=== PATIENT | female | born 1955 | race Caucasian/White ===

== ENCOUNTER 2017-05-10 09:27 | Inpatient (IN) | payer BC, OTHER ==
[2017-05-10] MEDS ORDERED: MORPHINE SULFATE INJ 10 MG/ML VIAL IV ONE ×2 (09:42→11:20)
--- NOTE | 2017-05-10 09:47 | ED.PDOC ---
History of Present Illness - General Chief Complaint: Abdominal Pain Stated Complaint: abdominal pain Time Seen by Provider: 05/10/17 09:33 Source: patient Exam Limitations: no limitations - History of Present Illness Initial Comments: Patient presents with abdominal pain, N/V/D since last night. The pain is diffuse, cramping, radiates to the back, worse with movement, better with rest, not relieved by bowel movements or vomiting. No previous episodes. Patient says it started with diarrhea but did not notice if it was bloody or not. N/V started shortly after. She has had a hysterectomy and cholecystectomy but is unsure if she has had an appendectomy. No fever nor chills. No recent travel nor new eating establishments. Has htn but denies diabetes. Timing/Duration: other - 12 hours Severity: moderate Improving Factors: rest Worsening Factors: movement Associated Symptoms: nausea/vomiting Allergies/Adverse Reactions: Allergies Iron Adverse Reaction (Verified 05/10/17 09:38) Other Causes upset stomach Home Medications: Ambulatory Orders Alprazolam [Xanax] 1 mg PO BEDTIME 05/24/16 Enalapril Maleate 10 mg PO DAILY 05/24/16 Sertraline HCl 50 mg PO DAILY 05/24/16 Simvastatin [Zocor] 40 mg PO DAILY 05/24/16 Rivaroxaban [Xarelto] 10 mg PO DAILY 05/10/17 Review of Systems - Review of Systems Constitutional: States: no symptoms reported EENTM: States: no symptoms reported Respiratory: States: no symptoms reported Cardiology: States: no symptoms reported Gastrointestinal/Abdominal: States: see HPI Genitourinary: States: no symptoms reported Musculoskeletal: States: no symptoms reported Skin: States: no symptoms reported Neurological: States: no symptoms reported Endocrine: States: no symptoms reported Hematologic/Lymphatic: States: no symptoms reported Past Medical History (General) - Patient Medical History Hx Seizures: No Hx Stroke: No Hx Dementia: No Hx Asthma: No Hx of COPD: No Hx Cardiac Disorders: No Hx Congestive Heart Failure: No Hx Pacemaker: No Hx Hypertension: Yes Hx Thyroid Disease: No Hx Diabetes: No Hx Gastroesophageal Reflux: Yes Hx Renal Disease: No Hx Cancer: No Hx of HIV: No Hx Hepatitis C: No Hx MRSA: No Surgical History: cholecystectomy, Hysterectomy - Vaccination History Hx Tetanus, Diphtheria Vaccination: No Hx Influenza Vaccination: Yes Hx Pneumococcal Vaccination: Yes - Social History Hx Tobacco Use: Yes Hx Chewing Tobacco Use: No Hx Alcohol Use: Yes - Socially on weekends Hx Substance Use: No Hx Substance Use Treatment: No Hx Depression: Yes Hx Physical Abuse: No Hx Emotional Abuse: No Hx Suspected Abuse: No - Activities of Daily Living Hospice Agency (if applicable):: None - Female History Patient is a Female of Child Bearing Age (10 -59 yrs old): No Patient : No Family Medical History - Family History Mother Family History: Unknown Living Status: Physical Exam - Physical Exam General Appearance: Obvious distress Respiratory: chest non-tender, lungs clear Cardiovascular/Chest: normal peripheral pulses, regular rate, rhythm, no edema Gastrointestinal/Abdominal: other - TTP, NABS, moderate guarding diffusely Back Exam: no CVA tenderness Extremity: no pedal edema Skin Exam: normal color Progress - Progress Progress: 05/10/17 09:49 Morpine 4 mg IV x one. 05/10/17 11:12 CT abdomen/pelvis showed acute pancreatitis. Lipase was only 45. Walkerton Score was 1. Patient given zofran 4 mg IV x one and started on NS at 100 ml/hour Admitted for acute pancreatitis. During the ER admission, the patient disclosed that she had drank 10 beers the night before. Laboratory Tests 05/10/17 05/10/17 05/10/17 09:53 09:53 09:53 WBC 13.2 H RBC 4.39 Hgb 13.2 Hct 40.7 MCV 92.7 MCH 30.0 MCHC 32.5 L RDW 15.7 H Plt Count 203 MPV 7.8 Absolute Neuts (auto) 12.10 H Absolute Lymphs (auto) 0.60 L Absolute Monos (auto) 0.50 Absolute Eos (auto) 0.00 Absolute Basos (auto) 0.10 Neutrophils % 91.2 H Lymphocytes % 4.5 L Monocytes % 3.8 Eosinophils % 0.0 L Basophils % 0.5 PT 13.2 H INR 1.170 PTT (SP) 37.9 H Sodium 141 Potassium 4.3 Chloride 106 Carbon Dioxide 25 Anion Gap 14.3 BUN 9 Creatinine 0.72 BUN/Creatinine Ratio 12.5 Random Glucose 171 H Serum Osmolality 284.0 Calcium 9.3 Total Bilirubin 0.5 AST 22 ALT 19 Alkaline Phosphatase 68 Creatine Kinase 35 CK-MB (CK-2) 2.2 CK-MB (CK-2) % Not Reportable Troponin I < 0.02 B-Natriuretic Peptide 5.7 Serum Total Protein 6.9 Albumin 4.0 Globulin 2.9 Albumin/Globulin Ratio 1.4 Lipase 45 Departure - Departure Clinical Impression: Pancreatitis Disposition: Admit Patient Condition: Good Departure Forms: ED Discharge - Pt. Copy, Patient Portal Self Enrollment Instructions: DI for Abdominal Pain-Adult Diet: other - NPO Activity: other - as per hospitalist Home Medications: Ambulatory Orders Alprazolam [Xanax] 1 mg PO BEDTIME 05/24/16 Enalapril Maleate 10 mg PO DAILY 05/24/16 Sertraline HCl 50 mg PO DAILY 05/24/16 Simvastatin [Zocor] 40 mg PO DAILY 05/24/16 Rivaroxaban [Xarelto] 10 mg PO DAILY 05/10/17
[2017-05-10] MEDS ORDERED: ONDANSETRON INJ 4 MG/2 ML VIAL IV ONE (10:20)
--- NOTE | 2017-05-10 10:25 | CT ---
EXAM DESCRIPTION: Abdomen/Pelvis w/wo Contrast CLINICAL HISTORY: Abdominal tenderness, bloating, and pain COMPARISON: None Available TECHNIQUE: CT of the abdomen and Pelvis was performed with and without IV contrast. This exam was performed according to our departmental dose-optimization program, which includes automated exposure control, adjustment of the mA and/or kV according to patient size and/or use of iterative reconstruction technique. FINDINGS: Pre-IV contrast images show evidence of prior cholecystectomy. Is a tiny nonobstructing calculus in the right renal hilum which may be of vascular origin. Mural calcifications are noted in the abdominal aorta without aneurysm. Postcontrast images show peripancreatic inflammation and fluid without contained fluid collection. There is no pancreatic mass or pancreatic duct dilation. No calcified gallstone is seen in the common bile duct, and there is no intra or extrahepatic biliary duct dilation. There is a 2 or 3 cm peripherally enhancing lesion in the posterior segment of the right hepatic lobe which likely represents a hemangioma. The portal and splenic veins are unremarkable. No apparent GI tract abnormality. The uterus is not identified, please correlate with surgical history. The left ovary is only tentatively identified. The right ovary is not seen and may also be surgically absent. No pleural effusion. IMPRESSION: Acute pancreatitis without contained peripancreatic fluid collection, abscess or other acute complication. Status post cholecystectomy without calcified gallstone in the common bile duct. Small hepatic hemangioma. Electronically signed by: Sebastien Mays MD 05/10/2017 10:23 AM CDT Workstation: [id number]
[2017-05-10] MEDS ORDERED: SODIUM CHLORIDE 0.9% 1000ML 1,000 ML IVS PRN (11:09)
--- NOTE | 2017-05-10 11:46 | HP ---
SUPERVISING PHYSICIAN: Emile Kahn M.D. CHIEF COMPLAINT: Abdominal pain. HISTORY OF PRESENT ILLNESS: Ms. Peterson is a 62 year-old female patient that presented to the Emergency Department this morning with complaints of acute onset of abdominal pain with having nausea, vomiting and diarrhea since yesterday. She notes that the pain has been diffuse and cramping with severe bloating and gas with some vomiting, and pain radiating from the epigastrium to her mid back. She notes that she has recently been out of the country within the last 2 weeks and visited [facility], [place] and [place], but denied any symptoms on [facility] 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 She notes that this past week she had consumed some alcohol but last night she had eaten at a restaurant and had some pizza, and consumed greater than 10 beers when she started having severe abdominal pains. She noted that she had been having diarrhea prior to last night's event , but denied any ill contacts at home. Initial laboratory studies in the Emergency Department showed that she had a leukocytosis of 13.2 with a left shift. Her hemoglobin showed 13.2 and 40.7 with a platelet count 203,000. Chemistries showed normal electrolytes with potassium 4.3. Renal function was intact with creatinine 0.72. Lipase was normal at 45. Cardiac enzymes showed troponin less than 0.02. All other liver functions showed to be within normal limits, including an LDH that was normal at 122. Given her severe abdominal pains on exam, a CT of the abdomen was completed without IV contrast and per radiology interpretation there was note of acute pancreatitis without contained peripancreatic fluid collections, abscess or other acute complications. She was given morphine for pain control, started on IV fluids in the Emergency Department and then request for the patient to be admitted to the Medical/ Surgical floor by Dr. Yates. The patient was seen and found to be in stable condition, and now is going to be admitted to the Medical/Surgical floor for treatment of acute pancreatitis and further evaluation, and ongoing therapy of the nausea, vomiting and diarrhea. PAST MEDICAL HISTORY: 1. Hypertension. 2. Anxiety and depression. 3. Pulmonary embolism after a bladder surgery in 2014, currently on Xarelto. 4. Duodenal ulcer with complications needing transfusion in May 2016 with upper GI being performed by Dr. Martinez. 5. Gastroesophageal reflux disease and is on Prilosec, however she has not been taking her medication for at least the last 7 days. PAST SURGICAL HISTORY: 1. Total hysterectomy. 2. Tonsillectomy. 3. Two bladder suspensions. 4. Cholecystectomy. 5. Breast biopsy on the left side. 6. Right wrist and ankle surgery. 7. Arthroscopic surgery of the right knee. 8. Surgical procedure for vulvoperineal varicosity. HOME MEDICATIONS: 1. Xanax 1 mg at bedtime. 2. Zocor 40 mg at bedtime. 3. Sertraline 50 mg. 4. Xarelto 10 mg daily. 5. Enalapril maleate 10 mg daily. 6. Prilosec 40 mg daily. FAMILY HISTORY: Significant for colon cancers. SOCIAL HISTORY: The patient is . 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 She does have a remote history of smoking but quit in 2014, but does periodically use a vaporizer. She notes that she drinks occasionally which she says is once a month and when she does she drinks beer. She denies any illicit drug use. REVIEW OF SYSTEMS: CONSTITUTIONAL: The patient denies any fever or chills. HEENT: Denies any headaches, visual disturbances, nasal congestion or sore throat. RESPIRATORY: Denies any shortness of breath or cough. CARDIOVASCULAR: Denies any chest pains, palpitations or syncopal episodes. GASTROINTESTINAL: As noted in the History of Present Illness, diffuse abdominal pain with nausea, vomiting and diarrhea. GENITOURINARY: Denies any dysuria, hematuria or other urinary symptoms. MUSCULOSKELETAL: Notes that she is having pain that radiates from her epigastric region into her back, it started last night. NEUROLOGIC: Denies any syncopal episodes, memory changes or any neurological deficits. PHYSICAL EXAMINATION: VITAL SIGNS: Temperature initially in the Emergency Room was 98.7, pulse 112, blood pressure 155/92, respirations 20 to 22, satting 89% on room air at rest, improving to 94% on nasal cannula at 2 liters. Admission weight is 85.4 kg. GENERAL: On admission to the Medical/Surgical floor, the patient is comfortable , appears to be in no acute distress. She is alert and oriented. HEENT: Tympanic membranes are clear bilaterally. Oropharynx is pink with mucosal membranes being dry. No lesions are noted. NECK: Supple, non-tender. Full range of motion with no jugular venous distention. CHEST: Lungs are clear to auscultation, just diminished towards the bases but no obvious rhonchi, wheezing or rales. CARDIOVASCULAR: Regular rate and rhythm without appreciable murmurs, gallops, or rubs. ABDOMEN: Diffuse tenderness to palpation with some guarding but normal bowel sounds. EXTREMITIES: No clubbing, cyanosis or edema. NEUROLOGIC: She is alert and oriented times three. Facial features were symmetrical. Extraocular movements are within normal limits. There is no nystagmus noted. There are no lateralizing or focalizing neuromotor deficits. LABORATORY: CBC shows leukocytosis of 13.3 with hemoglobin 13.2, hematocrit 40.7, platelet count 203,000. Differential does show a left shift. Coagulation studies show PT 13.2, PTT of 37.9. Chemistries show normal electrolytes initially with sodium 141, potassium 4.3, calcium 9.3, magnesium 1.6, BUN 9, creatinine 0.72. Liver functions showed to be within normal limits. LDH was 122. Troponin initially was less than 0.02. BNP was 5.7. Lipase was 45. Triglycerides and C reactive protein pending on admission. Urinalysis showed 3 to 5 RBCs, small amount of blood, otherwise within normal limits. Urine drug screen and alcohol level were pending at time of admission. RADIOLOGY: Initially in the Emergency Department and abdomen and pelvis CT completed without contrast showed acute pancreatitis without contained peripancreatic fluid collection, abscess or other acute complications. Chest x- ray was pending at time of admission. ASSESSMENT: 1. Acute pancreatitis as evidenced by CT scan with the patient showing systemic inflammatory response as being tachycardic with a leukocytosis and left shift, significant on admission to the Emergency Department felt to be secondary to acute alcohol intoxication versus dehydration from acute nausea, vomiting and diarrhea. 2. Acute abdominal pain with nausea, vomiting and diarrhea with a history of being recently out of the country travelling to [place] and [facility] with stool studies pending. Likely exacerbating acute pancreatitis. 3. Hypomagnesemia. 4. History of gastroesophageal reflux disease with some epigastric discomfort possibly secondary to acute pancreatitis with the patient having a past history of a duodenal ulcer with the patient being noncompliant with her PPI treatment in the recent weeks. 5. Hypertension. 6. Anxiety and depression on antidepressants. 7. History of past pulmonary embolism after a bladder suspension surgery in 2015 with the patient being on Xarelto. 8. Moderate obesity as noted by body mass index of 32.3. 9. Leukocytosis with a left shift in the presence of acute pancreatitis. PLAN: The patient will be admitted to the Medical/Surgical floor for continuation of treatment and further evaluation of her abdominal pains. She was given IV fluids in the Emergency Department. This will be continued with Lactated Ringers at 250 mL per hour for 2 liters with a repeat BMP and lipase and amylase at 2000 hours tonight. Once that BMP is available for review, fluid management will be adjusted as according to her electrolytes and renal function. She will be NPO for at least the next 24 to 48 hours depending on the clinical resolution of her symptoms. She will be provided pain management with morphine and antiemetics to include Zofran and Phenergan as needed. Given that she has been having a significant amount of diarrhea according to her history and has a recent history of travelling outside the [facility] to [facility], [place] and [place], will do stool studies to include ova and parasites , Giardia, Cryptosporidia, stool cultures and Clostridium Difficile along with fecal leukocytes and occult bloods. Will start her on coverage with antibiotic therapy pending stool cultures and further studies until available to be including Flagyl 500 mg every 8 hours with Levaquin 500 mg daily. Will anticipate length of stay to be at least 2 to 3 days pending clinical improvement and repeat laboratory studies. Until then, will continue to monitor the patient closely and treat appropriately. Once clinically stable and able to be discharged, the patient will need close clinical followup with her primary care provider, Gemini Fuentes with Dr. Serrato in [place]. #[id number] MXOS
[2017-05-10] MEDS ORDERED: LACTATED RINGERS 1,000 ML IVS PRN (12:04)
[2017-05-10] MEDS ORDERED: SODIUM CHLORIDE 0.9% (FLUSH) 10 ML SYG IV PRN (12:08)
[2017-05-10] MEDS ORDERED: ONDANSETRON INJ 4 MG/2 ML VIAL IV PRN (12:08)
[2017-05-10] MEDS ORDERED: PANTOPRAZOLE SODIUM IV 40 MG VIAL IV ONE (12:20)
[2017-05-10] MEDS ORDERED: IV SET AND CAP CHANGE INJ INJ SCH (12:30)
[2017-05-10] MEDS ORDERED: MAGNESIUM SULFATE PREMIX 2GM 2 GM in PREMIX BAG 1 BAG IVPB ONE (12:56)
[2017-05-10] MEDS ORDERED: MAGNESIUM SULFATE PREMIX 2GM 50 ML IVPB ONE (13:11)
[2017-05-10] MEDS: MORPHINE SULFATE INJ 10 MG/ML VIAL IV PRN ×3 (13:29→20:36)
--- NOTE | 2017-05-10 13:36 | RAD ---
EXAM DESCRIPTION: Chest,1 View CLINICAL HISTORY: acute pancreatitis COMPARISON: None available FINDINGS: The cardiomediastinal silhouette is unremarkable. There is some alveolar opacity in the right lung base which probably represents atelectasis, less likely pneumonia. No additional airspace consolidation or pleural effusion. There is no pneumothorax or acute fracture. IMPRESSION: Subsegmental atelectasis versus developing pneumonia in the right lung base, otherwise unremarkable exam. Electronically signed by: Sebastien Mays MD 05/10/2017 1:34 PM CDT Workstation: [id number]
[2017-05-10] MEDS ORDERED: metroNIDAZOLE IV PREMIX 500MG 100 ML IVPB ONE ×2 (14:37→20:06)
[2017-05-10] MEDS ORDERED: levoFLOXacin 500MG IV 100 ML IVPB ONE (14:38)
[2017-05-10] MEDS: metroNIDAZOLE IV PREMIX 500MG 500 MG in PREMIX BAG 1 BAG IVPB SCH ×2 (14:54→21:34)
[2017-05-10] MEDS: ENALAPRIL MALEATE 5 MG TAB PO SCH (15:00)
[2017-05-10] MEDS: SERTRALINE HCL 50 MG TAB PO SCH (15:00)
[2017-05-10] MEDS: RIVAROXABAN 10 MG TAB PO SCH (15:00)
[2017-05-10] MEDS: levoFLOXacin 500MG IV 500 MG in PREMIX BAG 1 BAG IVPB SCH (15:30)
[2017-05-10] MEDS: ALPRAZolam 0.5 MG TAB PO SCH (20:34)
[2017-05-10] MEDS: SODIUM CHLORIDE 0.45% 1000ML 1,000 ML IVS PRN (21:31)
[2017-05-11] MEDS: MORPHINE SULFATE INJ 10 MG/ML VIAL IV PRN ×3 (03:04→16:30)
[2017-05-11] MEDS ORDERED: metroNIDAZOLE IV PREMIX 500MG 100 ML IVPB ONE ×3 (05:22→21:39)
[2017-05-11] MEDS: metroNIDAZOLE IV PREMIX 500MG 500 MG in PREMIX BAG 1 BAG IVPB SCH ×3 (05:34→21:30)
[2017-05-11] MEDS: SODIUM CHLORIDE 0.45% 1000ML 1,000 ML IVS PRN (06:11)
[2017-05-11] MEDS ORDERED: levoFLOXacin 500MG IV 100 ML IVPB ONE (07:20)
[2017-05-11] MEDS: IPRATROPIUM/ALBUTEROL 3 ML VIAL NEB SCH ×4 (08:00→19:50)
--- NOTE | 2017-05-11 08:01 | RAD ---
PROCEDURE: Abdomen Flat Upright Clinical History: acute pancreatitis Indication: Same as above Comparison: CT of the abdomen and pelvis and chest x-ray done on 05/10/2017 Technique: Two views of the abdomen and pelvis were done. Findings: There is no gross evidence of free air in the abdomen or the pelvis . The small and large bowel gas pattern does not show any evidence of obstruction, ileus or bowel wall thickening. There is no visualization of radiopaque calculi in the outline of the urinary tract. The visualized lung bases show probable mild left-sided pleural effusion and mild bibasilar infiltrate/atelectasis There is no significant constipation. Impression: Nonobstructive and nonspecific bowel gas pattern The visualized lung bases show probable mild left-sided pleural effusion and mild bibasilar infiltrate/atelectasis Electronically signed by: Marlo Will MD 05/11/2017 8:00 AM CDT Workstation: [id number]
[2017-05-11] MEDS ORDERED: IPRATROPIUM/ALBUTEROL 3 ML VIAL NEB ONE (08:10)
[2017-05-11] MEDS ORDERED: HYDROmorphone HCL INJ 2 MG/ML VIAL IV ONE ×3 (08:57→12:44)
[2017-05-11] MEDS: RIVAROXABAN 10 MG TAB PO SCH (09:05)
[2017-05-11] MEDS: ENALAPRIL MALEATE 5 MG TAB PO SCH (09:05)
[2017-05-11] MEDS: SERTRALINE HCL 50 MG TAB PO SCH (09:05)
[2017-05-11] MEDS ORDERED: KCL 20 MEQ/NS 1,000 ML IVS PRN (12:31)
--- NOTE | 2017-05-11 13:03 | PN ---
DATE: 05/11/17 SUPERVISING PHYSICIAN: Emile Kahn M.D. SUBJECTIVE: The patient remains afebrile. She notes that her abdominal pain is not quite as bad as it was yesterday, although she does remain quite tender. She has not had any diarrhea since admission. She has had some additional episodes of nausea without any emesis. OBJECTIVE: VITAL SIGNS: Pulse 117, temperature 97.8, blood pressure 119/78, respirations 20, satting 88% on nasal cannula at rest. I's and O's show a positive balance of 1810 with 550 out, 2360 in. Weight is 85.4 kg. CHEST: Lungs are clear but somewhat diminished towards the bases. HEART: Tachycardic rhythm on bedside telemetry. No gallops or rubs are noted. ABDOMEN: Remains diffusely tender but there is no rebound tenderness noted this morning. She still seems to be more tender over the epigastrium. Bowel sounds are present. ABDOMEN: Remains soft. EXTREMITIES: No clubbing, cyanosis or edema. NEUROLOGIC : She is alert and oriented times three. LABORATORY: White count did show significant leukocytosis today of 23.1, platelet count is at 223,000. Differential shows a continued left shift although improving. Chemistries last night at 8:00 showed normal electrolytes with BUN of 9, creatinine 7.3, glucoses have been in the 150s, calcium last night was 8.4. This morning repeat chemistries showed normal electrolytes with potassium 4.6, BUN 8, creatinine 0.57, glucose 150, calcium 8.3, magnesium 2.2. Liver functions showed to be within normal limits. She did have a troponin last night at 8:00 as well that showed less than 0.02. Pancreatic enzymes last night at 8:00 had elevated to a lipase of 335, amylase 363. This morning, lipase is down to 261 as well as amylase is down to 310. RADIOLOGY: Abdominal series this morning per radiology interpretation shows a nonobstructive and nonspecific bowel gas pattern. ASSESSMENT: 1. Acute pancreatitis noted on CT scan on admission with the patient continuing to show systemic inflammatory response. Has remained tachycardic with an increase in leukocytosis and left shift with now elevated pancreatic enzymes felt to be secondary to acute alcohol intoxication versus exacerbation by dehydration by nausea, vomiting and diarrhea. 2. Acute abdominal pain associated with nausea, vomiting and diarrhea with a history of being recently out of the country travelling to [place] and [facility], [place] with stool studies continuing to be pending felt to be exacerbating the underlying acute pancreatitis. 3. Hypomagnesemia, improved after IV therapy. 4. History of gastroesophageal reflux disease with some continued epigastric discomfort likely secondary to acute pancreatitis with the patient having a history of a duodenal ulcer with the patient being noncompliant with PPI treatment in the recent weeks. 5. Hypertension. 6. Anxiety and depression on antidepressants. 7. History of past pulmonary embolism after bladder suspension surgery in 2014 with the patient being on Xarelto. 8. Moderate obesity as noted on body mass index of 32.3. 9. Continued leukocytosis with a left shift in the presence of acute pancreatitis with the patient having been placed on parenteral antibiotics to include Flagyl and Levaquin. PLAN: The patient will be continued with aggressive treatment and fluids this morning. Her output has not been well documented. I have requested a Puckett catheter be placed at least for the next 12 hours to closely monitor her output to help manage fluid status and IV therapy. She will be on half normal saline at 250 an hour today. Will closely monitor her I's and O's. Will manage fluids according to repeat BMP tonight at 1800. She has not had good pain control with morphine every 2 hours, therefore I will attempt to get her pain better controlled with some Dilaudid and then continue with morphine after that point. She will remain NPO with again repeat laboratory studies tonight and again in the morning as well as repeat abdominal series. She remains on close monitoring with telemetry. Anticipate at least an additional 48 hours of hospitalization given the patient's clinical condition currently. Until discharge, will continue to follow the patient closely and treat appropriately. #[id number] MTDD
[2017-05-11] MEDS: KCL 20 MEQ/NS 1,000 ML IVS PRN ×2 (14:12→22:57)
[2017-05-11] MEDS: levoFLOXacin 500MG IV 500 MG in PREMIX BAG 1 BAG IVPB SCH (15:00)
[2017-05-11] MEDS ORDERED: HYDROmorphone HCL INJ 2 MG/ML VIAL ONE (16:34)
[2017-05-11] MEDS: ALPRAZolam 0.5 MG TAB PO SCH (21:15)
[2017-05-12] MEDS: MORPHINE SULFATE INJ 10 MG/ML VIAL IV PRN ×2 (03:26→07:41)
[2017-05-12] MEDS ORDERED: metroNIDAZOLE IV PREMIX 500MG 100 ML IVPB ONE ×3 (07:25→20:55)
--- NOTE | 2017-05-12 07:26 | RAD ---
Abdomen 2 views INDICATION: Acute pancreatitis IMPRESSION: Mild bilateral pleural fluid. Cholecystectomy clips right upper quadrant. Multiple air-fluid levels are noted especially in the right abdomen. This is nonspecific and may be an enteritis/colitis or localized ileus. No evidence of high-grade mechanical obstruction. There is a rotary lumbar scoliosis. No evidence of free air. Electronically signed by: Shelton Winston MD 05/12/2017 7:25 AM CDT
[2017-05-12] MEDS: metroNIDAZOLE IV PREMIX 500MG 500 MG in PREMIX BAG 1 BAG IVPB SCH ×3 (07:29→22:00)
--- NOTE | 2017-05-12 07:29 | RAD ---
Chest 2 views INDICATION: Acute pancreatitis pneumonia IMPRESSION: Small bilateral pleural effusions. Heart size is within normal limits. Mild vascular congestion. No focal infiltrate. Electronically signed by: Shelton Winston MD 05/12/2017 7:27 AM CDT
[2017-05-12] MEDS: IPRATROPIUM/ALBUTEROL 3 ML VIAL NEB SCH ×4 (08:49→20:36)
[2017-05-12] MEDS: KCL 20 MEQ/NS 1,000 ML IVS PRN ×2 (08:55→23:30)
[2017-05-12] MEDS: RIVAROXABAN 10 MG TAB PO SCH (09:30)
[2017-05-12] MEDS: ENALAPRIL MALEATE 5 MG TAB PO SCH (09:30)
[2017-05-12] MEDS: SERTRALINE HCL 50 MG TAB PO SCH (09:30)
[2017-05-12] MEDS ORDERED: FUROSEMIDE INJ 20 MG/2 ML VIAL IV ONE (09:42)
[2017-05-12] MEDS ORDERED: CALCIUM GLUCONATE INJ 1 GM in SODIUM CHLORIDE 0.9% 50ML 50 ML IVPB ONE (09:44)
[2017-05-12] MEDS ORDERED: FAMOTIDINE IV PREMIX 20 MG in PREMIX BAG 1 BAG IVPB SCH (10:00)
[2017-05-12] MEDS ORDERED: HYDROmorphone HCL INJ 2 MG/ML VIAL IV PRN (10:10)
--- NOTE | 2017-05-12 10:46 | CONS ---
DATE OF CONSULTATION: 05/12/17 HISTORY OF PRESENT ILLNESS: The patient is a 62-year-old female who was admitted through the Emergency Room after developing abdominal pain with nausea , vomiting and diarrhea. She is no longer having stools and is not vomiting currently. She states the pain is likely worse. There is an association with consuming alcohol prior to her onset of symptoms, but the diarrhea was prior to that. She has recently returned from a cruise to the [facility]. She is status post cholecystectomy four years ago, but from discussion with the patient, it does not sound like this was from pancreatitis, only from symptomatic cholelithiasis. The patient denies fever or chills. At the time of admission, she had no complaints of shortness of breath or chest pain. PAST MEDICAL HISTORY: 1. Anxiety and depression. 2. Pulmonary embolism two years ago, on Xarelto. 3. History of hypertension. 4. History of duodenal ulcers in May of 2016. 5. History of gastroesophageal reflux disease. PAST SURGICAL HISTORY: 1. Hysterectomy. 2. Tonsillectomy. 3. Bladder suspension. 4. Cholecystectomy. 5. Left breast biopsy. 6. Orthopedic surgery on the knee, ankle, and wrist. MEDICATIONS AT TIME OF ADMISSION: 1. Xanax. 2. Zocor. 3. Sertraline. 4. Xarelto. 5. Enalapril. 6. Prilosec. FAMILY HISTORY: Positive for carcinoma of the colon. SOCIAL HISTORY: The patient is and lives at [facility]. She is retired. She smoked for many years, but now uses a vaporizer. She rarely drinks, approximately once a month. She has no history of drug use. REVIEW OF SYSTEMS: Negative except as in the history of present illness. She specifically denies recent blood per rectum, melanotic stools, or bloody vomitus. PHYSICAL EXAMINATION: GENERAL: The patient is awake, alert, cooperative, in mild to moderate distress. VITAL SIGNS: The patient is currently afebrile, normotensive. Pulse approximately 110. HEENT: Sclerae nonicteric. Mucous membranes moist. She has a nasal cannula within the nose. NECK: Without adenopathy. BACK: Without CVA tenderness. CHEST: Equal breath sounds bilaterally. HEART: Regular rate and rhythm. ABDOMEN: Soft. Diffusely tender. There are no bowel sounds noted. PELVIC/RECTAL: Deferred. EXTREMITIES: Without cyanosis, clubbing or edema. LABORATORY: This morning, potassium 4.8, which is stable. Creatinine 0.64, glucose 151. Liver function tests all within normal limits. C-reactive protein 31. Amylase and lipase are down to 169 and 77. They were 363 and 335 on admission. Calcium 8.1, down from 8.4 on admission. White count 13.2 on admission, now 19.8. Hemoglobin down to 11.2 from 13.2. Platelet count stable at 214. 90% neutrophils. Coag studies revealed INR 1.[address] scan is consistent with an acute pancreatitis with normal biliary ducts and no specific fluid collection. There was free fluid around the body of the pancreas. ASSESSMENT: 1. Acute pancreatitis, which is chemically improving, but the patient continues to have significant pain. 2. Ileus. PLAN: If the patient's pain does not resolve, we will consider repeating her CT scan. She has an ileus, both clinically with the lack of bowel sounds and on plain x-ray. We will make sure she obtains a proton pump inhibitor due to her history of a bleeding ulcer. We will discuss the use of Xarelto with her history of a recent pulmonary embolism. I will plan to follow this patient along with you. #[id number] [facility]
[2017-05-12] MEDS ORDERED: FUROSEMIDE INJ 20 MG/2 ML VIAL ONE (10:58)
[2017-05-12] MEDS ORDERED: FAMOTIDINE IV PREMIX 50 ML IVPB ONE (10:59)
[2017-05-12] MEDS ORDERED: ENOXAPARIN SODIUM 30 MG/0.3 ML SYG SUBCU SCH (11:00)
[2017-05-12] MEDS ORDERED: SODIUM CHLORIDE 0.9% 50ML 50 ML ONE (11:08)
[2017-05-12] MEDS ORDERED: CALCIUM GLUCONATE INJ 1 GM/10 ML VIAL IV ONE (11:08)
--- NOTE | 2017-05-12 11:38 | PN ---
DATE: 05/12/17 SUBJECTIVE: The patient is noticing increased abdominal pain compared to yesterday. She has difficulty moving in the bed and an under body pad will be utilized to assist her with proper positioning for comfort in the bed. She has fairly good urine output. Puckett catheter is in place. Urine is still a little dark. Still NPO, but the patient wishing some ice chips, which will be offered to her. OBJECTIVE: VITAL SIGNS: Afebrile. Pulse is still rapid and may be related to underlying pain state, but the patient has also had a history of a pulmonary embolism in the past. Blood pressure 128/69. Pulse oximetry 92% on 40% Ventimask, suggesting fairly significant hypoxia at this time. She will also be covered with Lovenox at a low dose very carefully administered again to help prevent DVT formation as SCDs continue. Tachycardia appears to be a normal sinus rhythm. Moderate hypoxia persists. LUNGS: Somewhat diminished bilaterally. HEART: Tones are rapid. ABDOMEN: No significant bowel tones present, suggesting a significant ileus. Gentle touching and rebound does reveal fairly significant rebound tenderness suggesting an underlying peritonitis. LABORATORY: Other laboratory studies show a white count still elevated, though lower at 19,800 with 90% neutrophils, hemoglobin 11.2 with continued hydration. Platelet count normal. Potassium 4.8, BUN 10, creatinine 0.64, sugar 151, calcium has dropped to 8.1, but also a low albumin of 2.7. C-reactive protein is markedly elevated up to 33.1 and was only 0.9 at admission. Chest x-ray does show bilateral pleural effusions with mild vascular congestion. No focal infiltrates at this time. Abdominal x-ray shows increased evidence of air- fluid level suggesting an ileus or a localized enterocolitis with followup necessary. ASSESSMENT: 1. Acute abdominal pain with evidence of elevated pancreatic enzymes suggesting an underlying pancreatitis, probably secondary to the acute bout of ethanol intake noted concurrently with the onset of symptoms this last Friday evening. No previous history of pancreatitis in the past. 2. Evidence of peritonitis, probably secondary to underlying pancreatitis, but continued evaluation with evidence of significant ileus present. Observe for underlying vascular insufficiency or other etiologies. Awaiting stool tests. 3. Hypomagnesemia. 4. History of gastroesophageal reflux disease. 5. History of ulcer disease in the past requiring treatment with proton pump inhibitors, being acquired from [facility] because of an international shortage. 6. History of hypertension. 7. Chronic tachycardia. 8. History of pulmonary embolism in the past which will require ongoing prophylaxis for deep venous thrombosis formation. 9. Chronic anxiety/depression. 10. Moderate obesity with body mass index of 32.3. 11. Leukocytosis, persisting. PLAN: Dr. Mai has seen the patient in consultation and will reevaluate as the patient's course is closely observed and supportive care to continue. Special attention to stop the morphine and try a course of Dilaudid, which may help her pain a little bit more and hopefully help lower her pulse rate. Initiate proton pump inhibitor parenterally because of her past history and because of the stress of the moment. Slow dose of minimal ice chips to help with comfort and oral hygiene. Decrease IV intake and give a single dose of Lasix low dose and observe. Check stools for occult blood. Reevaluate in the morning with x- ray and laboratory studies. Continue GI rest and close followup necessary. #[id number] [facility]
[2017-05-12] MEDS: HYDROmorphone HCL INJ 2 MG/ML VIAL IV PRN (14:17)
[2017-05-12] MEDS ORDERED: levoFLOXacin 500MG IV 100 ML IVPB ONE (15:31)
[2017-05-12] MEDS: levoFLOXacin 500MG IV 500 MG in PREMIX BAG 1 BAG IVPB SCH (15:33)
[2017-05-12] MEDS: ALPRAZolam 0.5 MG TAB PO SCH (22:00)
[2017-05-12] MEDS: PANTOPRAZOLE SODIUM IV 40 MG VIAL IV SCH (22:00)
[2017-05-13] MEDS: HYDROmorphone HCL INJ 2 MG/ML VIAL IV PRN ×3 (01:00→17:11)
--- NOTE | 2017-05-13 07:20 | RAD ---
Procedure: XR CHEST 1 VIEW Exam Date: 05/13/2017 Ordering Provider: STEPHANIA WILSON MD Clinical Indication: hypoxia Comparison: 05/12/2017 Findings: Cardiomediastinal silhouette is stable. Focal lung consolidation: Bibasilar atelectasis and/or infiltrate. Pleural effusion: Small bilateral pleural effusions. Pneumothorax: None Acute bony or soft tissue abnormality: None Impression: 1. Bibasilar atelectasis and/or infiltrate. 2. Small bilateral pleural effusions. Electronically signed by: Steven Baez MD 05/13/2017 7:19 AM CDT
--- NOTE | 2017-05-13 07:34 | RAD ---
Abdomen 2 views INDICATION: Pancreatitis COMPARISON: May 12 IMPRESSION: Mild vascular congestion in the chest with probable small pleural effusions. Apparent gallbladder clips right upper quadrant. No obstructive bowel gas pattern or free air noted. Air-fluid levels on the previous study have resolved. Electronically signed by: Shelton Winston MD 05/13/2017 7:33 AM CDT
[2017-05-13] MEDS ORDERED: metroNIDAZOLE IV PREMIX 500MG 100 ML IVPB ONE ×3 (08:10→20:12)
[2017-05-13] MEDS: RIVAROXABAN 10 MG TAB PO SCH (09:01)
[2017-05-13] MEDS: metroNIDAZOLE IV PREMIX 500MG 500 MG in PREMIX BAG 1 BAG IVPB SCH ×3 (09:01→22:42)
[2017-05-13] MEDS: ENALAPRIL MALEATE 5 MG TAB PO SCH (09:01)
[2017-05-13] MEDS: SERTRALINE HCL 50 MG TAB PO SCH (09:01)
[2017-05-13] MEDS: IPRATROPIUM/ALBUTEROL 3 ML VIAL NEB SCH ×4 (09:20→21:06)
[2017-05-13] MEDS: KCL 20 MEQ/NS 1,000 ML IVS PRN (11:06)
--- NOTE | 2017-05-13 14:05 | PN ---
DATE: 05/13/17 SUBJECTIVE: The patient states that the pain is less noticeable today compared to yesterday. Still has not passed flatus or bowel movements. Dr. Mai has seen the patient and wish to continue with NPO with a slight addition of some ice chips to assist with oral hygiene. Reevaluation in the morning. OBJECTIVE: LUNGS: Diminished breath sounds. HEART: Tones are regular. ABDOMEN: Diminished bowel sounds. Still some tenderness generally in the abdomen, though much less compared to yesterday. No organomegaly evident. EXTREMITIES: Fairly good muscle tone. The patient is a little unsteady when she tries to walk and is going to have to increase activity level very carefully to avoid falls. ASSESSMENT: 1. Acute abdominal pain with evidence of pancreatitis with elevated enzymes, showing some improvement. 2. History of acute ileus as a complication of the pancreatitis with associated peritoneal signs suggesting significant complications and sequelae of the pancreatitis, showing some clinical and laboratory improvement. 3. History of hypomagnesemia. 4. History of gastroesophageal reflux disease. 5. History of ulcer disease with her being started on a proton pump inhibitor. 6. History of hypertension. 7. Chronic tachycardia. 8. History of pulmonary embolism in the past with continued deep venous thrombosis prophylaxis. 9. Chronic anxiety/depression. 10. Moderate obesity with body mass index of 32.3. 11. Leukocytosis, showing improvement. PLAN: We will continue NPO status with some slight ice chips to assist with oral hygiene. Reevaluate in the morning and if doing well, will continue with diet advancement. We will specifically increase activity level which will also hopefully help increase peristaltic activity and help with relieving some of the symptoms of the associated ileus. We appreciate Dr. Mai's assisting. We will continue to observe closely as the patient increases activity with special attention to avoid falls. #[id number] [facility]
[2017-05-13] MEDS ORDERED: levoFLOXacin 500MG IV 100 ML IVPB ONE (15:38)
[2017-05-13] MEDS: levoFLOXacin 500MG IV 500 MG in PREMIX BAG 1 BAG IVPB SCH (15:49)
[2017-05-13] MEDS: ALPRAZolam 0.5 MG TAB PO SCH (20:18)
[2017-05-13] MEDS: PANTOPRAZOLE SODIUM IV 40 MG VIAL IV SCH (20:30)
[2017-05-14] MEDS: KCL 20 MEQ/NS 1,000 ML IVS PRN ×2 (00:36→11:53)
[2017-05-14] MEDS: HYDROmorphone HCL INJ 2 MG/ML VIAL IV PRN ×2 (02:35→15:06)
[2017-05-14] MEDS ORDERED: metroNIDAZOLE IV PREMIX 500MG 100 ML IVPB ONE (05:59)
[2017-05-14] MEDS: metroNIDAZOLE IV PREMIX 500MG 500 MG in PREMIX BAG 1 BAG IVPB SCH (06:01)
[2017-05-14] MEDS: IPRATROPIUM/ALBUTEROL 3 ML VIAL NEB SCH ×4 (08:44→20:44)
[2017-05-14] MEDS: RIVAROXABAN 10 MG TAB PO SCH (09:11)
[2017-05-14] MEDS: ENALAPRIL MALEATE 5 MG TAB PO SCH (09:11)
[2017-05-14] MEDS: SERTRALINE HCL 50 MG TAB PO SCH (09:11)
--- NOTE | 2017-05-14 13:36 | CONS ---
DATE OF CONSULTATION: 05/14/17 REQUESTING PHYSICIAN: Ganesh Mai MD REASON FOR CONSULTATION: Acute pancreatitis. HISTORY OF PRESENT ILLNESS: Ms. Peterson is a 62-year-old woman with a history of peptic ulcer disease, hypertension, and gastroesophageal reflux disease who is presenting with acute onset of abdominal pain for the past five days. This is predominantly in her epigastrium and mid-abdomen and radiating to her back. She did have vomiting when she was at home, but she is not vomiting currently. On presentation to the Emergency Room, she had a CT scan which showed findings consistent with acute pancreatitis without clear evidence of necrosis or peripancreatic fluid collection. Initially, her lipase level was normal, but jade to 300. She has been treated conservatively and with supportive measures, but she still has significant pain. She is not a regular heavy drinker, however , she has been binge drinking over the past two weeks due to the May holiday and having gone on a cruise recently. She does have her gallbladder removed many years ago. She believes she was due to cholecystitis. Her liver functions and bilirubin are normal. She still does have pain, but there is slight improvement since her admission. PAST MEDICAL HISTORY: 1. Hypertension. 2. Depression and anxiety. 3. Pulmonary embolism after bladder surgery in 2014 on anticoagulation. 4. Duodenal ulcer with bleeding in May of 2016. 5. Gastroesophageal reflux disease. PAST SURGICAL HISTORY: 1. Total hysterectomy. 2. Tonsillectomy. 3. Cholecystectomy. HOME MEDICATIONS: 1. Xanax. 2. Zocor. 3. Sertraline. 4. Xarelto. 5. Enalapril. 6. Prilosec. FAMILY HISTORY: No pancreatic disease. SOCIAL HISTORY: She does smoke tobacco. She is generally a social drinker, though heavier recently. REVIEW OF SYSTEMS: Ten-point review of systems is otherwise negative aside from what was mentioned above. PHYSICAL EXAMINATION: GENERAL: The patient is awake, alert and oriented times 3 and in some degree of discomfort due to abdominal pain. HEENT: Anicteric. Moist mucous membranes. Nasal cannula is in place. NECK: Trachea is midline with no masses. CHEST: Lungs clear to auscultation. HEART: Regular rate and rhythm. ABDOMEN: Moderate tenderness in the epigastrium and mid-abdomen without rebound. No appreciable distention. EXTREMITIES: No edema NEUROLOGIC: Cranial nerves II-XII are grossly intact. She has appropriate affect. RADIOLOGY: CT without contrast showed acute pancreatitis without obvious fluid or necrosis. ASSESSMENT: 1. Acute pancreatitis, moderate in severity. The underlying etiology is not entirely clear at this time, may be alcohol induced, but she does not have a long heavy drinking history which I would normally expect. Her triglyceride levels are normal, as are her liver enzymes. RECOMMENDATION: For now, she should be treated as you are with IV fluids, pain medication. I would also try to utilize her gut as soon as possible to minimize the risk of bacterial translocation which could cause infection. She is currently on ice chips and I would favor trying a clear liquid diet today to see if she tolerates it. If not, I would strongly consider using nasal jejunal feedings within the next 24 to 48 hours. Antibiotics in my opinion are not required at this time . I do anticipate gradual improvement. Upon discharge, she should followup with me in the clinic where we will discuss arranging for an endoscopic ultrasound to examine for either pancreatic ductal abnormalities or biliary sludge as etiology. GI will sign off now. Thank you for this consultation. #[id number] [facility]
[2017-05-14] MEDS ORDERED: FUROSEMIDE INJ 20 MG/2 ML VIAL IV ONE (17:46)
[2017-05-14] MEDS ORDERED: METOPROLOL TARTRATE 25 MG TAB PO ONE (17:46)
[2017-05-14] MEDS ORDERED: SODIUM CHLORIDE 0.9% (FLUSH) 10 ML SYG IV ONE (17:55)
--- NOTE | 2017-05-14 18:52 | PN ---
DATE: 05/14/17 SUPERVISING PHYSICIAN: Emile Kahn M.D. SUBJECTIVE: The patient says her pain is less than previous days. She has not had any more nausea and has started to pass a little bit of gas, but has not yet had a bowel movement. She was seen by Dr. Judd today and recommendations that we start the patient on clear liquids. She remains afebrile. OBJECTIVE: VITAL SIGNS: temperature 97.0, pulse 115, blood pressure 145/83, respirations 16, satting 93% on nasal cannula at 6 liters. I's and O's show a positive balance with 2300, 3600 in, 1300 out. Weight is up from admission of 85.4 to 90.2 kg. CHEST: Lungs are diminished towards the bases. No rhonchi or wheezing is noted. HEART: Tachycardic rhythm on the monitor but normal sinus. ABDOMEN: Obese but soft. Remains tender diffusely but no rebound tenderness is noted. Bowel sounds are hypoactive. EXTREMITIES: No clubbing, cyanosis or edema. NEUROLOGIC: She is alert and oriented times three. LABORATORY: White count now has normalized at 10.2 with hemoglobin stable at 10.2, hematocrit 32.0, platelet count 250,000. Differential continues to show a left shift. Chemistries: No chemistries were repeated today as she was showing stable electrolytes as well as renal function. Lipase and amylase had normalized. RADIOLOGY: No additional radiographic studies were performed. ASSESSMENT: 1. Acute pancreatitis, moderate severity with unknown etiology, possibly alcohol induced as she did have some binge drinking prior to admission. The patient has been seen in consultation by Dr. Mai and Dr. Judd. 2. Acute abdominal pain secondary to pancreatitis with normal pancreatic enzymes at this point. 3. History of acute illness as a complication of pancreatitis, shows clinical and laboratory improvement. 4. History of hypomagnesemia, normalized. 5. History of gastroesophageal reflux disease on Protonix. 6. History of ulcer disease with being started on a proton pump inhibitor. 7. History of hypertension. 8. Chronic tachycardia. 9. History of pulmonary embolism in the past with continued deep venous thrombosis prophylaxis. 10. Chronic anxiety/depression. 11. Moderate obesity with body mass index of 32.3. 12. Leukocytosis, now normalized. 13. Small bilateral pleural effusions as noted on radiographic studies possibly secondary to a hypovolemic state from aggressive IV fluids in treatment of pancreatitis resulting in the patient's desaturations requiring O2 at this point. PLAN: She was seen in consultation today by GI Specialty, Dr. Judd, who recommended that we start advancing the patient's diet with clear liquids as tolerated. If she is tolerating diet, anticipate hopefully discharging within the next 24 to 48 hours. Should she show continued nausea and vomiting, and unable to tolerate diet, recommendations from Dr. Judd was that we place a nasojejunal feeding tube. Will encourage the patient to ambulate. She has been saline locked at this point. She does appear to be a little bit on the positive side as far as fluids go, and has a little pleural effusion bilaterally and is showing some desaturations, therefore will give her a dose of Lasix tonight in an attempt to normalize her fluid balance. Will plan to recheck laboratory studies in the morning with BMP. Anticipation of discharge in the next 24 to 48 hours. Until then, will continue to monitor the patient closely and treat appropriately. #[id number] [facility]
[2017-05-14] MEDS: ALPRAZolam 0.5 MG TAB PO SCH (20:50)
[2017-05-15] MEDS: HYDROcodone 5MG/APAP 325MG 1 EA TAB PO PRN ×3 (02:15→20:12)
[2017-05-15] MEDS ORDERED: OMEPRAZOLE CAP 20 MG CAP ONE (06:01)
[2017-05-15] MEDS: PANTOPRAZOLE SODIUM TAB 40 MG PO SCH (06:09)
--- NOTE | 2017-05-15 07:14 | RAD ---
EXAM DESCRIPTION: Abdomen Flat Upright CLINICAL HISTORY: 62 years Female, pancreatitis COMPARISON: None. FINDINGS: Upright and supine views of the abdomen show mild blunting of the costophrenic angles bilaterally. There is no free suboptimally gas. Small colonic air-fluid levels are noted. No dilated small bowel loops. No suspicious intra-abdominal calcification or mass. Surgical clips in the right upper quadrant suggest prior cholecystectomy. There are degenerative changes in the thoracolumbar spine at several levels including mild convex rightward scoliosis. IMPRESSION: Tiny bilateral pleural effusions, but no pneumoperitoneum or obstruction. Colonic air-fluid levels suggestive of diarrhea. Electronically signed by: Sebastien Mays MD 05/15/2017 7:12 AM CDT Workstation: [email or web address]
--- NOTE | 2017-05-15 07:15 | RAD ---
EXAM DESCRIPTION: Chest,2 Views CLINICAL HISTORY: hypoxia COMPARISON: None available FINDINGS: The cardiomediastinal silhouette is unremarkable. There are small bilateral pleural effusions with overlying atelectasis, pneumonia or edema in the lung bases. The bronchovascular markings are within normal limits, and the lungs are not hyperinflated. There is no pneumothorax or acute fracture. IMPRESSION: Small bilateral pleural effusions with overlying atelectasis, pneumonia or edema. Electronically signed by: Sebastien Mays MD 05/15/2017 7:14 AM CDT Workstation: [id number]
[2017-05-15] MEDS: METOPROLOL TARTRATE 25 MG TAB PO SCH ×2 (08:25→17:34)
[2017-05-15] MEDS: IPRATROPIUM/ALBUTEROL 3 ML VIAL NEB SCH ×4 (08:59→20:00)
[2017-05-15] MEDS: ENALAPRIL MALEATE 5 MG TAB PO SCH (09:50)
[2017-05-15] MEDS: SERTRALINE HCL 50 MG TAB PO SCH (09:50)
[2017-05-15] MEDS: RIVAROXABAN 10 MG TAB PO SCH (09:50)
[2017-05-15] MEDS ORDERED: levoFLOXacin 500MG IV 100 ML IVPB ONE (11:09)
[2017-05-15] MEDS: levoFLOXacin 500MG IV 500 MG in PREMIX BAG 1 BAG IVPB SCH (11:12)
--- NOTE | 2017-05-15 15:36 | PN ---
DATE: 05/15/17 SUPERVISING PHYSICIAN: Emile Kahn M.D. SUBJECTIVE: The patient is feeling better today. She has actually been up ambulating. She remains afebrile. She was started on clear liquids last night and this morning, however is not having much of an appetite and does not care for jello, but the portioned meals that she did consume she has not had any nausea or vomiting. The patient has had a significant heart rate in the high 100s to 120s at times. Now that she is clinically better, I did add a beta eliseo last night which did show good results and the patient is tolerating a new medication regimen. OBJECTIVE: VITAL SIGNS: Afebrile, temperature 96.7, pulse 98, blood pressure 136/82, respirations 16, satting 92% on nasal cannula at 6 liters. Weight 87.9 kg. I's and O's show a negative balance of 1660 with 340 in, 2000 out. CHEST: Lungs are clear to auscultation. Still remains diminished towards the bases, but no rhonchi, wheezing or rales. HEART: Regular rate and rhythm showing sinus rhythm on the monitor. ABDOMEN: Obese but soft with some continued tenderness, although less on exam compared to previous days. Bowel sounds are present. NEUROLOGIC: She is alert and oriented times three. LABORATORY: CBC now shows to be fairly stable with an H&H of 9.9 and hematocrit of 30.2 with white count 8.9 and platelet count 189,000. Differential continues to show a left shift. Chemistries show normal electrolytes with potassium 3.8, BUN 10, creatinine 0.45, glucose 97, calcium 8.1. Liver functions are within normal limits. C reactive protein is pending for tomorrow. Amylase and lipase were within normal limits. RADIOLOGY: Chest x-ray today per radiology interpretation two view chest shows small bilateral pleural effusions with overlying atelectasis versus pneumonia or edema. Abdominal series per radiology interpretation there is note of again tiny bilateral pleural effusions, but no pneumoperitoneum or other obstruction. Chronic air-filled fluid level suggestive of diarrhea. ASSESSMENT: 1. Acute pancreatitis on admission with moderate severity, unknown etiology although felt to be secondary to possibly alcohol induced with the patient having been binge drinking prior to admission. The patient has been seen in consultation by Dr. Mai and Dr. Judd. 2. Acute abdominal pain secondary to pancreatitis now with normal pancreatic enzymes with initial complications secondary to an ileus. 3. History of acute illness as a complication of pancreatitis shows clinical improvement both clinically and on laboratory values. 4. History of hypomagnesemia, normalized. 5. Gastroesophageal reflux disease on Protonix. 6. History of ulcer disease with being started on Protonix. 7. History of hypertension. 8. History of tachycardia. 9. History of pulmonary embolism in the past with continued deep venous thrombosis prophylaxis. 10. Chronic anxiety and depression. 11. Moderate obesity with body mass index of 32.3. 12. Leukocytosis that has resolved after initiation of treatment. 13. Small bilateral pleural effusions as noted on radiographic studies likely secondary to aggressive IV fluid management showing good results with a small dose of Lasix and the patient being saline locked. PLAN: The patient was saline locked yesterday and has been tolerating clear liquids. At this point, will try to advance her diet to a low fat diet and monitor closely. She has remained on 6 liter nasal cannula maintaining O2 sats in the mid 90s but certainly has no history of previously needing oxygen at home. Given that she has had significant oxygen requirements and questionable bilateral pleural effusions versus pneumonia, will continue with Levaquin today for continued course with concerns again for developing pneumonia. Will give her another dose of Lasix tonight and anticipate hopefully discharging tomorrow as she tolerates diet today. Once discharged, she will need close clinical followup with Dr. Judd as already scheduled, and her primary care provider. #[id number] [facility]
[2017-05-15] MEDS ORDERED: MAGNESIUM HYDROXIDE 30 ML UD PO PRN (20:14)
[2017-05-15] MEDS: SODIUM CHLORIDE 0.9% (FLUSH) 10 ML SYG IV SCH (20:20)
[2017-05-15] MEDS: ALPRAZolam 0.5 MG TAB PO SCH (20:21)
[2017-05-16] MEDS: PANTOPRAZOLE SODIUM TAB 40 MG PO SCH (06:05)
[2017-05-16] MEDS: METOPROLOL TARTRATE 25 MG TAB PO SCH (08:02)
[2017-05-16] MEDS: HYDROcodone 5MG/APAP 325MG 1 EA TAB PO PRN ×2 (08:02→12:27)
[2017-05-16] MEDS: IPRATROPIUM/ALBUTEROL 3 ML VIAL NEB SCH (08:33)
--- NOTE | 2017-05-16 09:07 | RAD ---
EXAM DESCRIPTION: Abdomen Flat Upright CLINICAL HISTORY: 62 years Female, PANCREATITIS COMPARISON: Slight 2016 FINDINGS: Supine and erect films of the abdomen are compared to previous day's study and demonstrates slight haziness at the lung bases suggesting at least a small pleural effusion on the left. Scoliosis of the lumbar spine and surgical clips from prior cholecystectomy are noted. Small air-fluid level suggests an element of ileus within the small intestine and colon. No free abdominal air is seen and no evidence of obstruction noted. No soft tissue masses are evident. No evidence of pneumoperitoneum or obstruction. IMPRESSION: Slight haziness at the lung bases suggesting small pleural effusions, particularly on the left with stable abdomen with small air-fluid level suggesting a mild ileus. Electronically signed by: Jimmy Azul MD 05/16/2017 9:05 AM CDT
[2017-05-16] MEDS: ENALAPRIL MALEATE 5 MG TAB PO SCH (09:24)
[2017-05-16] MEDS: SERTRALINE HCL 50 MG TAB PO SCH (09:24)
[2017-05-16] MEDS: RIVAROXABAN 10 MG TAB PO SCH (09:25)
[2017-05-16] MEDS: SODIUM CHLORIDE 0.9% (FLUSH) 10 ML SYG IV SCH (09:25)
[2017-05-16 10:31] VITALS: BP 117/73; TEMP 98.1; O2SAT 95
[2017-05-16] MEDS ORDERED: levoFLOXacin 500MG IV 100 ML IVPB ONE (10:35)
[2017-05-16] MEDS: levoFLOXacin 500MG IV 500 MG in PREMIX BAG 1 BAG IVPB SCH (10:37)
--- NOTE | 2017-05-17 20:18 | DS ---
SUPERVISING PHYSICIAN: Emile Kahn M.D. DISCHARGE DIAGNOSIS: 1. Acute pancreatitis with moderate severity, unknown etiology although felt to be secondary to possible alcohol induced with the patient having been binge drinking prior to admission. The patient was seen in consultation by Dr. Mai and Dr. Judd and was showing much clinical improvement prior to discharge with normalization of her laboratory studies and near resolution of her pain tolerating a low fat diet. 2. Acute abdominal pain secondary to pancreatitis as noted in number 1 with improvement prior to discharge with some initial complications through hospitalization secondary to ileus which did resolve prior to discharge. 3. History of acute ileus as a complication of pancreatitis, resolved prior to discharge. 4. Hypomagnesemia, resolved after IV replacement. 5. Gastroesophageal reflux disease on Protonix. 6. History of ulcer disease having been started on Protonix. 7. Hypertension. 8. Notable increased heart rate initially felt to be secondary to underlying pancreatitis showing to be persistent even as the patient clinically improved. Started on beta eliseo to include Toprol 25 b.i.d. showing good control at time of discharge. 9. History of pulmonary embolism in the past with continued deep venous thrombosis prophylaxis with Xarelto. 10. Chronic anxiety and depression. 11. Moderate obesity with body mass index of 32.3. 12. Leukocytosis secondary to pancreatitis having resolved after initiation of treatment. 13. Bilateral pleural effusions, small as noted on radiographic studies with continued mild hypoxia on exertion felt to be secondary to aggressive IV fluid management although showing good results with small dose of Lasix and stopping IVs with the patient requiring supplemental oxygenation on discharge with no evidence of pneumonia on x-ray or clinical assessment with the patient having been on Levaquin for duration of the hospitalization. HISTORY OF PRESENT ILLNESS: Ms. Peterson is a 62 year-old female patient that presented to the Emergency Department initially on admission with complaints of acute onset of abdominal pain with having nausea, vomiting and diarrhea 24 hours prior to admission. She noted that she had pain that was diffuse and cramping with severe bloating and gas with some vomiting, and pain radiating from the epigastrium to her mid back. She notes that she has recently been out of the country within the last 2 weeks on a cruise and had visited [facility], [place] and [place], but denied any symptoms on returning to the states. 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 She notes that in the past week she had consumed some alcohol but the night prior to admission she had eaten at a restaurant and had some pizza, as well as consumed greater than 10 beers at which time she started noting severe abdominal pains. She noted that she had been having some diarrhea prior to the night's event, but denied any ill contacts at home. Initial laboratory studies in the Emergency Department showed that she had a leukocytosis of 13.2 with a left shift. Her hemoglobin showed 13.2 and 40.7 with a platelet count 203,000. Chemistries showed normal electrolytes with potassium 4.3. Renal function was intact with creatinine 0.72. Lipase was normal at 45. Cardiac enzymes showed troponin less than 0.02. All other liver functions showed to be within normal limits, including an LDH that was normal at 122. Given her initial severe abdominal pains on exam, a CT of the abdomen was completed with IV contrast and per radiology interpretation there was note of acute pancreatitis without contained peripancreatic fluid collections, abscess or other acute complications. She was given morphine for pain control, started on IV medications in the Emergency Department and then it was requested the patient be admitted to the Medical/Surgical floor by Dr. Yates for further treatment and evaluation. The patient was seen in the E. R. and found to be in stable condition, and at that point was admitted to the Medical/Surgical floor for continued treatment of developing acute pancreatitis and further evaluation , and to assist in symptomatic control of her nausea, vomiting and diarrhea. LABORATORY: CBC initially showed a white count of 13.2, 24 hours post admission it did maximize to 21.1. She was on antibiotics and fluids, and slowly showed good improvement and prior to discharge her CBC had shown a white count normalization up to 8.5. Hemoglobin had stabilized to 9.9, hematocrit 30.2, platelet count was 189,000. Differential continued to show a mild left shift prior to discharge. Coagulation studies showed a slightly elevated PT at 13.2 with PTT of 37.9 with the patient being on Xarelto. Chemistries on admission showed normal electrolytes, normal liver functions. Troponin was less than 0.02. Triglycerides were slightly elevated at 168 with lipase of 45. C reactive protein was 0.9. With treatment, electrolytes remained within normal limits, at discharge sodium 136, potassium 3.8, BUN 10, creatinine 0.45, calcium 8.1. Liver functions showed to be within normal limits. C reactive protein did elevated after 33.1. Urinalysis on admission showed 3 to 5 RBCs, 1 to 3 epithelials, small amount of blood. After initiation of a Puckett to closely monitor I's and O's, urinalysis showed just a trace amount of blood with microscopic being within normal limits. She had a stool occult blood that was negative. On admission to the Emergency Department, she had a urine drug screen that was positive for opiates and Benzodiazepines. Alcohol was less than 5.40. MICROBIOLOGY: She had a stool culture that showed no enteric pathogens at 24 hours. She had a C-Diff stool toxin A and B that was negative and stool leukocytes that were negative. RADIOLOGY: Initially in the Emergency Department, she had an abdominal and pelvic CT with and without contrast and per radiology interpretation there was note of acute pancreatitis without contained peripancreatic fluid collection, abscess or other acute complications. Please refer to that report for full details. She had a chest x-ray prior to admission and per radiology interpretation there was note of subsegmental atelectasis versus developing pneumonia in the right lung base, otherwise was unremarkable. She had multiple abdominal x-rays. Initially abdominal x-ray after admission on the morning of showed per radiology interpretation nonobstructing nonspecific bowel gas pattern and continued with additional followup abdominal x-rays which did initially show a small ileus possible. This was followed-up and finally on date of discharge last abdomen per radiology interpretation showed slight haziness of the lung base suggesting small pleural effusion particularly on the left with stable abdomen with small air-fluid level suggesting a mild ileus, although the patient was having bowel movements and was tolerating diet. HOSPITAL COURSE: Ms. Peterson was admitted on 05/10/17 for acute pancreatitis, started on IV fluids and antibiotics to include Levaquin and Flagyl, and monitored closely. She was made NPO and she remained NPO until 05/14/17 at which time she had good improvement and was no longer having a significant amount of pain. She tolerated advancement of her diet to a low fat diet prior to discharge without any nausea or vomiting. She did have some diarrhea again. All testing for stool studies were negative for any acute findings. She remained hemodynamically stable. She did show some desaturations after she became ambulatory requiring ongoing oxygen therapy which it was felt that possibly she was having some residual effects from fluid overload after receiving large volumes of fluid for treatment of pancreatitis. She was given a little Lasix and showed good improvement in her urine output and some improvement requiring less oxygen prior to discharge. She was having bowel movements and tolerating a diet which was advanced to low fat diet, 24 hours prior to discharge she was afebrile. Her pain was still mildly present but much improved since admission. She did have a Puckett catheter placed without any complications initially to closely monitor I's and O's while receiving fluids. She had no complications through the hospitalization and was felt clinically stable enough to be discharged. She was seen in consultation by Dr. Judd. He recommended that we stop her antibiotics that she had been on since admission. Flagyl was stopped, however Levaquin was continued for the concern for the underlying possible pneumonia as the findings on the x-ray reports were noted. The patient did show an increased heart rate and it was felt that possibly this was related to initially the underlying pancreatitis and pain. After she showed good clinical improvement in her clinical presentation, she still remained tachycardic in the low 100s and at that point she was started on a beta eliseo which she did show good response to, which will be continued in the outpatient setting but will need close followup. CONSULTATION: [facility], Dr. Judd. Please refer to his consultation report for full details. PLAN: Ms. Peterson was discharged on 05/16/17 with instructions to have close clinical followup with Karolina Jensen, Nurse Practitioner, in [place] as scheduled on 05/22/17 at 9:30 AM. She was also to followup with Dr. Judd, GI, as scheduled in [place] for a future endoscopic ultrasound. She was told that she should never drink alcohol again to prevent recurrence of the pancreatitis and to follow a low fat diet. She was encouraged to stop smoking and to not use any cigarettes or any vape devices. She was to advance her diet as tolerated and encouraged to return to the hospital or call 911 should she have any concerning symptoms. At discharge, she was provided prescriptions to include: 1. Albuterol nebulized 2.5 mg every 4 hours as needed. 2. Metoprolol 25 mg twice daily, #60. 3. Protonix 40 mg daily, #30. She was also provided a prescription for medical equipment that included home oxygen concentrator and portable O2. Diet was to be low fat diet as tolerated. Activity is increase as tolerated. Condition at discharge was stable and improved. #[id number] [facility]
== END 2017-05-16 12:45 | disposition home or self-care (01) | DRG 438 ==
LOC: ER 09:27 → OBSVTOIN 11:46 → MS 11:46
PROVIDERS: ADMIT Family Medicine; ATTEND Nurse Practitioner Family
PROC: BW21YZZ Computerized Tomography (CT Scan) of Abdomen and Pelvis using Other Contrast (ICD-10-PCS; principal; 2017-05-10)
DX: K85.20 Alcohol induced acute pancreatitis without necrosis or infection (principal); K65.8 Other peritonitis; K56.7 Ileus, unspecified; J90 Pleural effusion, not elsewhere classified; E86.0 Dehydration; E83.42 Hypomagnesemia; K21.9 Gastro-esophageal reflux disease without esophagitis; I10 Essential (primary) hypertension; F32.9 Major depressive disorder, single episode, unspecified; F41.9 Anxiety disorder, unspecified; R19.7 Diarrhea, unspecified; R00.0 Tachycardia, unspecified; R09.02 Hypoxemia; E66.9 Obesity, unspecified; F17.210 Nicotine dependence, cigarettes, uncomplicated; Z87.11 Personal history of peptic ulcer disease; Z86.711 Personal history of pulmonary embolism; Z91.14 Patient's other noncompliance with medication regimen; Z79.01 Long term (current) use of anticoagulants; Z68.32 Body mass index [BMI] 32.0-32.9, adult; Z79.899 Other long term (current) drug therapy

== ENCOUNTER → 2019-07-08 | Outpatient (CLI) | payer BC, OTHER ==
--- NOTE | 2019-07-08 10:48 | RAD ---
EXAM DESCRIPTION: Knee,Left Complete CLINICAL HISTORY: 64 years, Female, PAIN IN LEFT KNEE COMPARISON: None TECHNIQUE: Four views of the left knee FINDINGS: No acute displaced fracture or dislocation is seen. The joint spacing and alignment of the left knee is intact. No significant knee joint effusion. Mild osteoarthritic changes with small osteophyte formation and joint space narrowing noted about the medial and patellofemoral compartments. The soft tissues are unremarkable. IMPRESSION: 1. No acute displaced fracture or dislocation. Electronically signed by: Yuniel Judge DO 07/08/2019 10:46 AM CDT
--- NOTE | 2019-07-08 10:50 | RAD ---
EXAM DESCRIPTION: Pelvis CLINICAL HISTORY: 64 years Female, PAIN IN LEFT HIP COMPARISON: None. FINDINGS/IMPRESSION: Single frontal view of the pelvis demonstrate no acute displaced fracture or dislocation. No focal bony erosion or aggressive periosteal reaction seen. Mild degenerative changes of the bilateral hip and sacroiliac joints. The soft tissues are unremarkable. Electronically signed by: Yuniel Judge DO 07/08/2019 10:48 AM CDT
--- NOTE | 2019-07-08 12:24 | RAD ---
EXAM DESCRIPTION: Foot,Left 3 Views CLINICAL HISTORY: PAIN IN LEFT FOOT COMPARISON: None Available. TECHNIQUE: AP, LATERAL, AND OBLIQUE FINDINGS: The visualized bones appear poorly mineralized. Mild degenerative changes identified in the first metatarsophalangeal joint. The soft tissues appear grossly unremarkable. IMPRESSION: Mild osteoarthritis of the first metatarsophalangeal joint. Electronically signed by: Kristi Leonard MD 07/08/2019 12:22 PM CDT
== END ==
LOC: RAD 08:38
PROVIDERS: ATTEND Orthopaedic Surgery
DX: M19.072 Primary osteoarthritis, left ankle and foot (principal); M16.0 Bilateral primary osteoarthritis of hip; M47.898 Other spondylosis, sacral and sacrococcygeal region; M25.562 Pain in left knee

== ENCOUNTER → 2020-07-11 | Outpatient (CLI) | payer BC ==
--- NOTE | 2020-07-11 10:55 | MRI ---
EXAM DESCRIPTION: Knee,Left CLINICAL HISTORY: 65 years Female, OSTEOARTHRITIS COMPARISON: None. TECHNIQUE: Noncontrast multiplanar multisequence magnetic resonance imaging of the left knee. FINDINGS: A flap tear is present within the posterior horn body segment junction of the medial meniscus. Small area of free edge radial type tearing of the posterior horn near the root lateral meniscus is present. Free edge degeneration/tearing of the lateral meniscus body. Anterior and posterior cruciate ligaments are intact. Usual mucoid/degenerative signal of the anterior cruciate ligament. Medial collateral and fibular collateral ligaments are intact. Extensor mechanism is intact. Nonfocal grade 2 thinning is present throughout the lateral patellar facet articular surface. Small 0.4 cm focus of grade 2-3 chondral fibrillation medial patellar facet (series 301 image 25). Small 0.5 cm focus of full-thickness cartilage fibrillation with tiny subchondral cyst formation medial deep trochlear groove consistent with grade 4 chondrosis. A 0.4 cm focus of grade 4 chondral fibrillation lateral trochlear groove near the superior lateral margin with subchondral bone plate edema consistent with grade 4 chondrosis. Mild grade 2 chondral thinning of the central weightbearing surface medial compartment. Nonfocal grade 3 cartilage loss of the central weightbearing surface lateral compartment without subchondral bone marrow edema or cystlike formation. Large knee joint effusion with mild synovitis. No popliteal cyst formation. IMPRESSION: Flap tear medial meniscus. Degenerative free edge tearing of the lateral meniscus. 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 See above description. Lateral compartment chondrosis up to grade 3. Large knee joint effusion with mild synovitis. Electronically signed by: Julio Cesar Garzon MD 07/11/2020 10:54 AM CDT
== END ==
LOC: MRI 07:00
PROVIDERS: ATTEND Orthopaedic Surgery
DX: M17.12 Unilateral primary osteoarthritis, left knee (principal); S83.242A Other tear of medial meniscus, current injury, left knee, initial encounter; S83.282A Other tear of lateral meniscus, current injury, left knee, initial encounter; M22.42 Chondromalacia patellae, left knee; M65.862 Other synovitis and tenosynovitis, left lower leg; M25.462 Effusion, left knee

== ENCOUNTER → 2020-07-17 | Outpatient (CLI) | payer BC ==
--- NOTE | 2020-07-18 08:16 | RAD ---
Procedure: XR CHEST 2 VIEWS Exam Date: 07/17/2020 Ordering Provider: Dave Hutchison Clinical Indication: PRESURGERY EVALUATION Comparison: 05/15/2017 Findings: Cardiomediastinal silhouette is within normal limits. Aortic calcification. No focal lung consolidation. No pleural effusion. No pneumothorax. No acute osseous abnormality. Impression: 1. No acute abnormality in the chest. Electronically signed by: Steven Baez MD 07/18/2020 8:14 AM CDT
== END ==
LOC: LAB.O 08:50
PROVIDERS: ATTEND Orthopaedic Surgery
DX: Z01.818 Encounter for other preprocedural examination (principal)

== ENCOUNTER 2020-08-02 05:32 | Day surgery (SDC) | payer BC ==
[2020-08-02] MEDS ORDERED: SODIUM CHL 0.9% 100ML MINI-BAG 100 ML IVPB ONE (06:36)
[2020-08-02] MEDS ORDERED: LACTATED RINGERS 1,000 ML ONE (06:36)
[2020-08-02] MEDS ORDERED: ceFAZolin SODIUM 1 GM VIAL ONE (06:36)
[2020-08-02] MEDS ORDERED: PROPOFOL 200 MG/20 ML VIAL IV ONE (07:00)
[2020-08-02] MEDS ORDERED: ONDANSETRON INJ 4 MG/2 ML VIAL ONE (07:00)
[2020-08-02] MEDS ORDERED: KETOROLAC TROMETHAMINE INJ 30 MG/ML VIAL ONE (07:00)
[2020-08-02] MEDS ORDERED: METOCLOPRAMIDE HCL INJ 10 MG/2 ML VIAL ONE (07:00)
[2020-08-02] MEDS ORDERED: BUPIVACAINE 0.5% 30 ML VIAL INJ ONE (09:15)
[2020-08-02] MEDS ORDERED: fentaNYL CITRATE INJ 50 MCG/ML 2 ML AMP ONE (11:03)
[2020-08-02] MEDS ORDERED: MIDAZOLAM INJ 2 MG/2 ML VIAL ONE (11:03)
[2020-08-02] MEDS: ceFAZolin SODIUM 1 GM VIAL ONE ×3 (11:40→11:55)
[2020-08-02] MEDS: BUPIVACAINE LIPOSOME 13.3 MG/ML VIAL INJ ONE ×2 (11:40→11:55)
[2020-08-02] MEDS: VANCOMYCIN HCL INJ 1,000 MG VIAL IVPB ONE ×2 (11:41→11:55)
[2020-08-02 13:09] VITALS: BP 144/79; TEMP 96.7; O2SAT 98
--- NOTE | 2020-08-10 09:46 | OP ---
DATE OF PROCEDURE: 08/02/20 PREOPERATIVE DIAGNOSIS: 1. Meniscus tear, left knee. 2. Chondromalacia, left knee. POSTOPERATIVE DIAGNOSIS: 1. Multiple loose bodies in the knee. 2. Chondromalacia. 3. Meniscus tear. PROCEDURE: 1. Removal of loose bodies 2. Debridement. 3. Partial meniscectomy. SURGEON: Dave Hutchison MD. EXECUTIVE CHAIRMAN: Naveed Espino CST, -C. ANESTHESIA: General anesthesia. COMPLICATIONS: None. FINDINGS: 1. Multiple loose bodies in medial compartment. 2. Grade 3 and 4 chondromalacia in the medial compartment. 3. Degenerative fraying of the medial meniscus. 4. Normal ACL, normal PCL. 5. Degenerative tearing of the lateral meniscus. 6. Grade 3 and 4 degenerative changes and full thickness cartilage loss in the lateral compartment. 7. Full thickness cartilage loss in the patellofemoral compartment. 8. Normal lateral gutter. 9. Normal suprapatellar pouch. 10. Normal medial gutter. INDICATION: Vida has a history of knee pain that has been refractory to conservative measures. Because of her ongoing pain and the refractory nature of her pain, she has requested operative intervention. After discussing the risks, benefits and alternatives to operative therapy, the patient has given informed consent. PROCEDURE: The patient was brought to the Operating Room and placed in supine position. General anesthesia was induced and the patient's leg was sterilely prepped and draped. Following prepping and draping, standard anteromedial and anterolateral portals were established. Diagnostic arthroscopy was carried out with the above findings. Attention was then focused on medial compartment where at least 3 loose bodies were removed. The cartilage was debrided with a 3.5 mm full radius shaver. The medial compartment was subsequently debrided and the patellofemoral joint was debrided. All cartilage surfaces were probed to ensure there was no gross loose fragments. Following that, the knee was thoroughly irrigated. Following irrigation, the knee was drained. The wounds were closed with Nylon suture. Sterile dressings were placed. The patient was awoken from anesthesia and taken to Recovery. POSTOPERATIVE PLAN: The patient will be non-weightbearing and will followup with us in two weeks. #[id number] [facility]
== END 2020-08-02 13:08 | disposition home or self-care (01) ==
LOC: AMB 05:32
PROVIDERS: ATTEND Orthopaedic Surgery
DX: S83.242A Other tear of medial meniscus, current injury, left knee, initial encounter (principal); M94.262 Chondromalacia, left knee; M23.42 Loose body in knee, left knee; M17.12 Unilateral primary osteoarthritis, left knee; R94.31 Abnormal electrocardiogram [ECG] [EKG]; Z79.899 Other long term (current) drug therapy
CPT/HCPCS: 01400; 29881; 80307; J0690; J1885; J2250; J2405; J2765; J3010; J3370; J3490; J7050; J7120